=== PATIENT | male | born 1960 | race Caucasian/White ===

== ENCOUNTER 2016-05-05 18:37 | Inpatient (IN) | payer MEDICAID, OTHER ==
[~2016-05-05] VITALS: Ht 172.7 cm; Wt 81.6 kg
[2016-05-05 18:44] VITALS: BP 157/95
[2016-05-05] MEDS ORDERED: ONDANSETRON 4 MG/2 ML VIAL IVP ONE ×2 (19:05→21:45)
[2016-05-05] MEDS ORDERED: NACL 0.9% 1,000 ML IV ONE (19:05)
[2016-05-05] MEDS ORDERED: MORPHINE SULFATE 4 MG/ML SYR IVP ONE (19:05)
--- NOTE | 2016-05-05 19:16 | NUR ---
[facility] BLS TO ER BED 1
--- NOTE | 2016-05-05 19:20 | NUR ---
PT STATES HE IS IN TOO MUCH PAIN FOR URINATE AT THE MOMENT, WILL ATTEMPT IN A LITTLE BIT, ER MD DR KAUR MADE AWARE
--- NOTE | 2016-05-05 19:20 | NUR ---
55Y M BIBA C/O AB PAIN RADIATES TO BACK. [facility] PROVIDED ZOFRAN ODT 4MG WHILE ON TRANSPORT . PT DENIES N/V/D; SKIN IS PINK/WARM/DRY; AAOX4 WITH EVEN AND STEADY GAIT; LUNGS CLEAR BL; HR EVEN AND REGULAR; PT DENIES ANY FEVER, CP, SOB, OR COUGH AT THIS TIME; PATIENT STATES PAIN OF 10/10 AT THIS TIME; VSS; PATIENT POSITIONED FOR COMFORT; HOB ELEVATED; BEDRAILS UP X2; BED DOWN. ER MD MADE AWARE OF PT STATUS. HX: GALLSTONES FALL 07/2015 FROM 10 FOOT LADDER
--- NOTE | 2016-05-05 19:30 | NUR ---
Patient being evaluated by physician DR KAUR at bedside.
[2016-05-05 19:31] LABS: BASOPHILS # (AUTO) 0.1 K/uL (0.00-0.22); BASOPHILS % (AUTO) 0.9 % (0.0-2.0); EOSINOPHILS # (AUTO) 0.3 K/uL (0-0.4); EOSINOPHILS % (AUTO) 1.9 % (0.0-4.0); HEMATOCRIT 50.2 % (36-52); HEMOGLOBIN 16.4 g/dL (12.0-18.0); LYMPHOCYTES # (AUTO) 1.4 K/uL (2.0-11.5); LYMPHOCYTES % (AUTO) 8.4 % (20.5-51.1); MEAN CORPUSCULAR HEMOGLOBIN 30 pg (27-31); MEAN CORPUSCULAR HGB CONC 33 g/dL (33-37); MEAN CORPUSCULAR VOLUME 91 fL (80-94); MONOCYTES # (AUTO) 0.7 K/uL (0.8-1.0); MONOCYTES % (AUTO) 4.6 % (1.7-9.3); NEUTROPHILS # (AUTO) 13.8 K/uL (1.8-7.7); NEUTROPHILS % (AUTO) 84.2 % (42.2-75.2); PLATELET COUNT (AUTO) 305 K/uL (140-450); RED BLOOD CELL COUNT(AUTO) 5.53 MIL/uL (4.20-6.10); RED CELL DISTRIBUTION WIDTH 13.1 % (11.6-13.7); WHITE BLOOD COUNT (AUTO) 16.3 K/uL (4.8-10.8)
--- NOTE | 2016-05-05 19:35 | NUR ---
Ultrasound at bedside.
[2016-05-05 19:46] LABS: ANION GAP 6.6 (8-16); CALCIUM 8.5 mg/dL (8.5-10.1); CARBON DIOXIDE 33.3 mmol/L (21-32); CREATININE 0.9 mg/dL (0.6-1.3); POTASSIUM 3.9 mmol/L (3.5-5.1)
[2016-05-05 19:55] LABS: ALBUMIN 4.1 g/dL (3.4-5.0); TOTAL BILIRUBIN 0.5 mg/dL (0.0-1.0); TOTAL PROTEIN, SERUM 7.8 g/dL (6.4-8.2)
[2016-05-05] MEDS ORDERED: ALUMINUM HYD/MAG/SIMETHICONE 30 ML, BELLADONNA/PHENOBARBITAL 10 ML, LIDOCAINE VISCOUS 2... PO ONE ×3 (19:55)
[2016-05-05 20:23] LABS: APPEARANCE,URINE SL CLOUDY (CLEAR); BILIRUBIN,URINE NEGATIVE (NEGATIVE); BLOOD, URINE NEGATIVE (NEGATIVE); COLOR,URINE YELLOW (YELLOW); LEUKOCYTE ESTERASE ,URINE NEGATIVE (NEGATIVE); NITRITE, URINE NEGATIVE (NEGATIVE); PH,URINE 8.5 (5.0-9.0); PROTEIN,URINE 2+ (NEGATIVE); UGLUCOSE NEGATIVE (NEGATIVE); UROBILINOGEN,URINE 0.2 EU/dL (0.2 - 1)
[2016-05-05 20:39] LABS: BACTERIA,URINE FEW /HPF (None Seen); RBC,URINE NONE SEEN /HPF (0-5); SQUAMOUS EPITHELIAL CELL,UR None Seen /LPF (0-3 (FEW)); URINE AMORPHOUS PHOSPHATES 1+ /HPF (None Seen); WBC,URINE NONE SEEN /HPF (0-5)
[2016-05-05] MEDS ORDERED: metroNIDAZOLE 500 MG/NS PREMIX 100 ML IV ONE (20:55)
[2016-05-05] MEDS ORDERED: cefTRIAXone 1,000 MG VIAL ONE (21:09)
[2016-05-05] MEDS ORDERED: HYDROmorphone 1 MG/ML AMP IVP ONE (21:45)
[2016-05-05 21:47] LABS: INR 1.1 (0.8-1.2); PARTIAL THROMBOPLASTIN TIME 27.9 secs (22-35.6); PROTHROMBIN TIME 10.7 secs (10.8-13.4)
[2016-05-05 22:05] LABS: FREE T4 (FREE THYROXINE) 1.09 ng/dL (0.76-1.46); THYROID STIMULATING HORMONE 0.72 uIU/mL (0.34-3.76)
[2016-05-05] MEDS ORDERED: ONDANSETRON 4 MG/2 ML VIAL IVP PRN (22:55)
[2016-05-05] MEDS ORDERED: ACETAMINOPHEN 325 MG TAB PO PRN (22:55)
[2016-05-05 23:24] LABS: AMPHETAMINE, URINE NEG. ng/ml (NEG <=1000); BARBITURATE, URINE NEG. ng/ml (NEG <=200); BENZODIAZEPINE, URINE NEG. ng/mL (NEG <=200); CANNABINOID, URINE POS. ng/mL (NEG <=50); COCAINE, URINE NEG. ng/mL (NEG <=300); OPIATE, URINE POS. ng/mL (NEG <=2000); PHENCYCLIDINE SCREEN,URINE NEG. ng/mL (NEG <=25)
[2016-05-06] VITALS (7 sets, daily range): BP systolic 115–166; BP diastolic 67–87
--- NOTE | 2016-05-06 00:33 | NUR ---
Patient will be admitted to care of DR BRUSH . Admited to TELE 119A. Will go to room 119A. Belongings list completed. Report to DEWEY MYRICK .
[2016-05-06] MEDS: NACL 0.9% 1,000 ML IV SCH ×4 (01:27→23:12)
[2016-05-06] MEDS: HYDROcodone/APAP 5/325 MG 1 TAB TAB PO PRN ×2 (01:35→19:40)
--- NOTE | 2016-05-06 02:00 | NUR ---
[id number] Y.O.M. FROM ER.PLACED ON BED.ORIENTED TO ROOM.CALL SYSTEM EXPLAINED AND IN REACH.TELE APPLIED AND SHOWING SB.PT IS AWAKE,ALERT AND ORIENTED.RESP.UNLABORED W/O2 AT 2L/NC.IVF OF NS AT 120ML/H STARTED VIA IV LINE IN RT.AC W/#20 G W/O REDNESS OR EDEMA AT SITE AND INFUSING WELL.INITIAL ASSESSMENT DONE.CARE PLAN DISCUSSED W/PT.HE VERBALIZED UNDERSTANDING.HAD C/O ABDOMINAL PAIN PO PAIN MED GIVEN.WILL REASSESS LATER.
--- NOTE | 2016-05-06 04:25 | NUR ---
SLEEPING.VS STABLE.HR IS SB.NO S/S OF PAIN NOTED.CALL LIGHT WITHIN REACH.
[2016-05-06] MEDS: metroNIDAZOLE 500 MG/NS PREMIX 100 ML IV SCH ×3 (04:46→20:06)
--- NOTE | 2016-05-06 05:59 | NUR ---
PT REFUSED SMOKING CESSATION.ALSO FLU AND PNA VACCINE.IVF IS IN PROGRESS.NO C/O PAIN AT PRESENT TIME.STILL SLEEPING.2ND DOSE OF FLAGYL GIVEN.PT TOLERATED WELL.
[2016-05-06 06:15] LABS: BASOPHILS # (AUTO) 0.2 K/uL (0.00-0.22); BASOPHILS % (AUTO) 1.2 % (0.0-2.0); EOSINOPHILS # (AUTO) 0.1 K/uL (0-0.4); EOSINOPHILS % (AUTO) 0.7 % (0.0-4.0); HEMATOCRIT 42.4 % (36-52); HEMOGLOBIN 14.4 g/dL (12.0-18.0); LYMPHOCYTES # (AUTO) 3.8 K/uL (2.0-11.5); LYMPHOCYTES % (AUTO) 20.4 % (20.5-51.1); MEAN CORPUSCULAR HEMOGLOBIN 31 pg (27-31); MEAN CORPUSCULAR HGB CONC 34 g/dL (33-37); MEAN CORPUSCULAR VOLUME 93 fL (80-94); MONOCYTES # (AUTO) 1.4 K/uL (0.8-1.0); MONOCYTES % (AUTO) 7.4 % (1.7-9.3); NEUTROPHILS # (AUTO) 12.9 K/uL (1.8-7.7); NEUTROPHILS % (AUTO) 70.3 % (42.2-75.2); PLATELET COUNT (AUTO) 249 K/uL (140-450); RED BLOOD CELL COUNT(AUTO) 4.58 MIL/uL (4.20-6.10); RED CELL DISTRIBUTION WIDTH 12.9 % (11.6-13.7); WHITE BLOOD COUNT (AUTO) 18.4 K/uL (4.8-10.8)
[2016-05-06 06:39] LABS: ANION GAP 9.1 (8-16); CALCIUM 7.7 mg/dL (8.5-10.1); CARBON DIOXIDE 28.9 mmol/L (21-32); CREATININE 0.8 mg/dL (0.6-1.3)
[2016-05-06 06:46] LABS: CHOL/HDL RATIO 4.5 (1-4.5); MAGNESIUM 2.5 mg/dL (1.8-2.4); PHOSPHORUS 3.6 mg/dL (2.5-4.9)
--- NOTE | 2016-05-06 07:00 | NUR ---
RECEIVED REPORT FROM NIGHT NURSE. PT IS AAOX4, ON 2L VIA NC, IV TO RIGHT AC 20G INFUSING WELL. SKIN INTACT. PT STATES NO PAIN AT THIS TIME. INITIAL ASSESSMENT COMPLETED. REVIEWED PLAN OF CARE WITH PT, PT VERBALIZED UNDERSTANDING. CALL LIGHT WITHIN REACH. WILL CONTINUE TO MONITOR.
--- NOTE | 2016-05-06 09:10 | NUR ---
PATIENT HAS BEEN SCREENED AND CATEGORIZED MODERATE NUTRITION RISK. PATIENT WILL BE SEEN WITHIN 3-5 DAYS OF ADMISSION. 05/08/16-05/10/[address]
[2016-05-06] MEDS ORDERED: ALBUTEROL SULFATE/IPRATROPIU 3 ML SOL IH PRN (09:20)
[2016-05-06] MEDS: DOCUSATE SODIUM 100 MG GELCAP PO SCH (10:00)
[2016-05-06] MEDS: LACTOBACILLUS RHAMNOSUS GG 1 EACH CAP PO SCH (10:00)
--- NOTE | 2016-05-06 10:00 | NUR ---
0900 MEDICATIONS GIVEN AT THIS TIME. PT TOLERATED WELL. PT CURRENTLY SLEEPING IN BED. NO S/S OF RESPIRATORY DISTRESS NOTED. CALL LIGHT WITHIN REACH. WILL CONTINUE TO MONITOR.
[2016-05-06] MEDS: LEVOFLOXACIN 750 MG/D5W PREMIX 150 ML IV SCH (10:01)
[2016-05-06] MEDS: ALBUTEROL SULFATE/IPRATROPIU 3 ML SOL IH SCH ×4 (10:35→23:31)
--- NOTE | 2016-05-06 12:05 | NUR ---
PT CURRENTLY SLEEPING. NO S/S OF DISCOMFORT NOTED. CALL LIGHT WITHIN REACH WILL CONTINUE TO MONITOR.
--- NOTE | 2016-05-06 14:25 | NUR ---
PT CURRENTLY SLEEPING. CALL LIGHT WITHIN REACH. WILL CONTINUE TO MONITOR.
[2016-05-06] MEDS ORDERED: NICOTINE TRANSD SYS 21 MG/24 HR PATCH TD SCH (16:11)
--- NOTE | 2016-05-06 16:49 | NUR ---
NICOTINE PATCH APPLIED TO RIGHT ARM. PT CURRENTLY WATCHING TV. NO S/S OF RESPIRATORY DISTRESS OR DISCOMFORT NOTED. ALL NEEDS MET. CALL LIGHT WITHIN REACH. WILL CONTINUE TO MONITOR.
--- NOTE | 2016-05-06 19:00 | NUR ---
ENDORSED PLAN OF CARE TO NIGHT NURSE PT IN STABLE CONDITION.
--- NOTE | 2016-05-06 19:18 | NUR ---
RECEIVED REPORT FROM RAMEZ ROBLES, AT BEDSIDE. INITIAL ASSESSMENT AND BODY CHECK DONE. PATIENT AAO X 4, ABLE TO FOLLOW COMMAND AND MAKE NEEDS KNOWN AND AMBULATORY BY SELF WITH STEADY GAIT. PATIENT CURRENTLY LYING DOWN ON THE BED AND WATCHING TV. NO S/S OF DISTRESS OR SOB NOTED. STILL C/O MILD ABDOMINAL PAIN AND HUNGRY AT THIS TIME. SKIN WARM/DRY TO TOUCH WITH NORMAL COLOR AND INTACT. DISCUSSED PLAN OF CARE, PAIN MANAGEMENT AND MEDICATION REGIMEN WITH PATIENT AND PATIENT VERBALIZED UNDERSTANDING. PLACED PATIENT ON SAFETY PRECAUTIONS AND WILL CONTINUE TO MONITOR. CALL LIGHT LEFT WITHIN REACH.
[2016-05-06] MEDS: BUDESONIDE 0.5 MG/2 ML NEBU INH SCH (19:35)
[2016-05-06] MEDS: CALCIUM CARBONATE 500 MG TAB PO SCH (20:06)
--- NOTE | 2016-05-06 20:35 | NUR ---
DR. ISAAC HERE TO SEE THE PATIENT. NEW ORDERS GIVEN, NOTED AND CARRIED OUT. RESUMED DIET TO FULL LIQUID AND NPO AFTER MIDNIGHT; PATIENT AGREED TO HAVE THE SURGERY AND SIGNED THE CONSENT FORM FOR LAPAROSCOPIC POSSIBLE CHOLECYSTECTOMY BY DR. ISAAC. EXPLAINED THE PURPOSES/BENEFITS/RISKS AND PATIENT VERBALIZED UNDERSTANDING.
--- NOTE | 2016-05-06 21:29 | NUR ---
ADMINISTERED DUE AND PRN MEDICATIONS MD'S ORDERED WITH EDUCATION GIVEN. PATIENT COMPLYING WITH MEDICATIONS AND TOLERATED WELL. ALL NEEDS ARE ATTENDED. KEPT PATIENT IN COMFORTABLE POSITION/WARM AND WILL CONTINUE TO MONITOR.
--- NOTE | 2016-05-06 22:56 | NUR ---
ROUNDS MADE, SEEN PATIENT RESTED QUIETLY IN BED AND NO CHANGED IN CONDITION NOTED.
[2016-05-07] VITALS (7 sets, daily range): BP systolic 104–117; BP diastolic 67–74
--- NOTE | 2016-05-07 01:30 | NUR ---
PATIENT IS CLINICALLY STABLE WITH UNCHANGED V/S. WILL CONTINUE TO MONITOR.
[2016-05-07] MEDS: ALBUTEROL SULFATE/IPRATROPIU 3 ML SOL IH SCH ×5 (02:29→20:23)
--- NOTE | 2016-05-07 03:58 | NUR ---
PATIENT RESTED COMFORTABLY IN BED, EASILY AROUSED AND REMAINED IN STABLE CONDITION. NO ANY COMPLAINT MADE. WILL CONTINUE TO MONITOR.
[2016-05-07] MEDS: metroNIDAZOLE 500 MG/NS PREMIX 100 ML IV SCH ×3 (04:20→20:06)
[2016-05-07 06:13] LABS: BASOPHILS # (AUTO) 0.2 K/uL (0.00-0.22); EOSINOPHILS # (AUTO) 0.2 K/uL (0-0.4); EOSINOPHILS % (AUTO) 1.9 % (0.0-4.0); HEMATOCRIT 41.9 % (36-52); HEMOGLOBIN 14.3 g/dL (12.0-18.0); LYMPHOCYTES # (AUTO) 3.4 K/uL (2.0-11.5); LYMPHOCYTES % (AUTO) 32.4 % (20.5-51.1); MEAN CORPUSCULAR HEMOGLOBIN 32 pg (27-31); MEAN CORPUSCULAR HGB CONC 34 g/dL (33-37); MEAN CORPUSCULAR VOLUME 92 fL (80-94); MONOCYTES # (AUTO) 0.7 K/uL (0.8-1.0); MONOCYTES % (AUTO) 6.4 % (1.7-9.3); NEUTROPHILS # (AUTO) 6.1 K/uL (1.8-7.7); NEUTROPHILS % (AUTO) 57.3 % (42.2-75.2); PLATELET COUNT (AUTO) 226 K/uL (140-450); RED BLOOD CELL COUNT(AUTO) 4.55 MIL/uL (4.20-6.10); RED CELL DISTRIBUTION WIDTH 12.9 % (11.6-13.7); WHITE BLOOD COUNT (AUTO) 10.6 K/uL (4.8-10.8)
[2016-05-07 06:21] LABS: ANION GAP 9.7 (8-16); CARBON DIOXIDE 28.3 mmol/L (21-32); CREATININE 0.9 mg/dL (0.6-1.3)
[2016-05-07 06:32] LABS: PHOSPHORUS 3.7 mg/dL (2.5-4.9)
--- NOTE | 2016-05-07 07:00 | NUR ---
PATIENT OFF THE UNIT FOR SURGERY WITH STABLE CONDITION. ENDORSED PLAN OF CARE TO RAMEZ HUTCHISON.
[2016-05-07] MEDS: BUDESONIDE 0.5 MG/2 ML NEBU INH SCH ×2 (07:17→20:23)
[2016-05-07] MEDS ORDERED: BUPIVACAINE-MPF/EPI 0.25% 30 ML VIAL INJ ONE (07:42)
[2016-05-07] MEDS ORDERED: ROCURONIUM 50 MG/5 ML VIAL IV ONE (07:45)
[2016-05-07] MEDS ORDERED: LIDOCAINE 2% 100 MG/5 ML SYR IVP ONE (07:45)
[2016-05-07] MEDS ORDERED: PHENYLEPHRINE 10 MG/ML VIAL ONE (07:45)
[2016-05-07] MEDS ORDERED: GLYCOPYRROLATE 0.2 MG/ML VIAL ONE (07:45)
[2016-05-07] MEDS ORDERED: SUCCINYLCHOLINE CHLORIDE 200 MG/10 ML VIAL IVP ONE (07:45)
[2016-05-07] MEDS ORDERED: PROPOFOL 200 MG/20 ML VIAL IV ONE (07:45)
[2016-05-07] MEDS ORDERED: KETOROLAC 60 MG/2 ML VIAL IM ONE (07:45)
[2016-05-07] MEDS ORDERED: DESFLURANE 240 ML BTL INH ONE (07:45)
[2016-05-07] MEDS ORDERED: ONDANSETRON 4 MG/2 ML VIAL ONE (07:45)
[2016-05-07] MEDS ORDERED: fentaNYL 0.05 MG/ML VIAL ONE (07:58)
[2016-05-07] MEDS ORDERED: MEPERIDINE 50 MG/ML SYR ONE (07:58)
[2016-05-07] MEDS ORDERED: MIDAZOLAM 2 MG/2 ML VIAL ONE (07:58)
[2016-05-07] MEDS: LACTOBACILLUS RHAMNOSUS GG 1 EACH CAP PO SCH (09:00)
[2016-05-07] MEDS ORDERED: LACTOBACILLUS RHAMNOSUS GG 1 EACH CAP PO SCH (09:00)
[2016-05-07] MEDS: DOCUSATE SODIUM 100 MG GELCAP PO SCH (09:00)
[2016-05-07] MEDS: CALCIUM CARBONATE 500 MG TAB PO SCH ×2 (09:00→20:05)
[2016-05-07] MEDS ORDERED: MIDAZOLAM 2 MG/2 ML VIAL IVP ONE (09:20)
[2016-05-07] MEDS ORDERED: MEPERIDINE 25 MG/ML SYR IVP PRN ×2 (09:20)
[2016-05-07] MEDS ORDERED: METOCLOPRAMIDE 10 MG/2 ML INJ VIAL IVP PRN (09:20)
--- NOTE | 2016-05-07 10:20 | NUR ---
PT BACK FROM OR WITH CLINICAL APPLICATIONS MANAGER AT BEDSIDE. PT IS AAOX4, BUT DROWSY D/T ANESTHESIA MEDICATIONS. JUDSON, PT'S AUNT AT BEDSIDE. PT HAS 22G IV ON RIGHT AC, INTACT AND PATENT. PT HAS 4 INCISIONS ON ABD COVERED WITH BAND-AID. MINIMAL BLEEDING NOTED; OTHERWISE, SKIN IS WARM, DRY, AND INTACT. PT DENIES PAIN AT THIS TIME. NICOTINE PATCH NOTED ON LEFT ARM. PT ON 2L O2 NASAL CANNULA WITH NO S/S DISTRESS OR SOB AT THIS TIME. SAFETY MEASURES CHECKED, CALL LIGHT LEFT AT BEDSIDE. WILL CONTINUE TO MONITOR.
[2016-05-07] MEDS: NICOTINE TRANSD SYS 21 MG/24 HR PATCH TD SCH (10:35)
[2016-05-07] MEDS: LEVOFLOXACIN 750 MG/D5W PREMIX 150 ML IV SCH (10:35)
[2016-05-07] MEDS: NACL 0.9% 1,000 ML IV SCH ×2 (10:36→16:35)
--- NOTE | 2016-05-07 10:54 | NUR ---
REMOVED NICOTINE PATCH ON RIGHT ARM AND NEW ON PLACED ON LEFT ARM.
--- NOTE | 2016-05-07 10:54 | NUR ---
NICOTINE PATCH ON RIGHT ARM, NOT LEFT. Addendum: 05/07/16 at 1055 by Dilcia Medina RN BEFORE NEW ONE WAS PLACED.
--- NOTE | 2016-05-07 12:00 | NUR ---
ASSISTED PT WITH LUNCH TRAY. PER PT, HE DOES NOT HAVE N/V AT THIS TIME.
--- NOTE | 2016-05-07 15:18 | NUR ---
INCENTIVE SPIROMETER GIVEN TO PATIENT. IS EDUCATION GIVEN. PT VERBALIZED UNDERSTANDING. PT ASKING FOR PAIN MEDICATIONS. DR. TRINIDAD INFORMED.
[2016-05-07] MEDS ORDERED: MORPHINE SULFATE 2 MG/ML SYR IVP PRN (15:20)
--- NOTE | 2016-05-07 16:30 | NUR ---
DR FERNANDES AND AMOS AT BEDSIDE EXPLAINING PROCEDURE PT HAD TODAY. PT VERBALIZED UNDERSTANDING THAT HE HAD HIS GALLBLADDER TAKEN OUT. DR TRINIDAD ALSO EXPLAINED THAT DR ISAAC HAD SEEN AN INCARCERATED BOWEL, SO HERNIA REPAIR WAS DONE TOO. PT VERBALIZED UNDERSTANDING.
--- NOTE | 2016-05-07 17:17 | NUR ---
PT AMBULATING AROUND UNIT, TOLERATING WELL. WILL CONTINUE TO MONITOR.
--- NOTE | 2016-05-07 19:25 | NUR ---
REPORT GIVEN TO PIYUSH MYRICK.
--- NOTE | 2016-05-07 19:26 | NUR ---
RECEIVED PT IN STABLE CONDITION FROM RAMEZ HUTCHISON. NO SOB, NO SIGNS OF DISTRESS. IV TO RT AC 20G PATENT, ASYMPTOMATIC, INTACT, SALINE LOCKED. PT IS AOX4, AMBULATORY. PT C/O ABD PAIN, WILL MEDICATE PER MD ORDER. PT S/P LAP BALJEET WITH HERNIA REPAIR, 4 INCISIONS TO ABD WITH DRESSINGS DRY AND INTACT, SKIN OTHERWISE INTACT. FAMILY AT BEDSIDE. PLAN OF CARE DISCUSSED WITH PT. SAFETY MEASURES IN PLACE. CALL LIGHT WITHIN REACH. WILL CONTINUE TO MONITOR.
[2016-05-07] MEDS: HYDROcodone/APAP 5/325 MG 1 TAB TAB PO PRN (20:05)
--- NOTE | 2016-05-07 20:06 | NUR ---
PT TOLERATED DUE MEDS WELL, MEDICATED PT FOR PAIN PER MD ORDER. NO SOB, NO SIGNS OF DISTRESS. IV SITE ASYMPTOMATIC, INTACT, PATENT, IVF RUNNING. PLAN OF CARE DISCUSSED WITH PT. SAFETY MEASURES IN PLACE. CALL LIGHT WITHIN REACH. WILL CONTINUE TO MONITOR.
--- NOTE | 2016-05-07 22:30 | NUR ---
PT RESTING IN BED. NO SOB, NO SIGNS OF DISTRESS. IV SITE ASYMPTOMATIC, INTACT, PATENT, IVF RUNNING. PT DENIES PAIN AT THIS TIME. PLAN OF CARE DISCUSSED WITH PT. SAFETY MEASURES IN PLACE. CALL LIGHT WITHIN REACH. WILL CONTINUE TO MONITOR.
--- NOTE | 2016-05-07 23:40 | NUR ---
VS STABLE ON ROOM AIR, O2 SAT 91 ON ROOM AIR, PLACED PT ON 2L O2 NC. NO SOB, NO SIGNS OF DISTRESS. IV SITE ASYMPTOMATIC, INTACT, PATENT, IVF RUNNING. PT C/O PAIN, WILL MEDICATE PER MD ORDER. PLAN OF CARE DISCUSSED WITH PT. SAFETY MEASURES IN PLACE. CALL LIGHT WITHIN REACH. WILL CONTINUE TO MONITOR.
[2016-05-08] VITALS: BP 115/61
[2016-05-08] MEDS: ALBUTEROL SULFATE/IPRATROPIU 3 ML SOL IH SCH ×4 (00:03→11:07)
[2016-05-08] MEDS: HYDROcodone/APAP 5/325 MG 1 TAB TAB PO PRN ×2 (00:08→08:34)
--- NOTE | 2016-05-08 02:29 | NUR ---
PT ASLEEP IN BED. NO SOB, NO SIGNS OF DISTRESS. IV SITE ASYMPTOMATIC, INTACT, PATENT, IVF RUNNING. SAFETY MEASURES IN PLACE. CALL LIGHT WITHIN REACH. WILL CONTINUE TO MONITOR.
--- NOTE | 2016-05-08 03:20 | NUR ---
PT REFUSED HHNTX, WANTS TO SLEEP. JENNIFFER MYRICK AWARE.
[2016-05-08] MEDS: NACL 0.9% 1,000 ML IV SCH ×2 (04:25→09:15)
--- NOTE | 2016-05-08 04:30 | NUR ---
CHANGED IV BAG AND GAVE IVPB PER MD ORDER. PT AWAKE, NO SOB, NO SIGNS OF DISTRESS. IV SITE ASYMPTOMATIC, INTACT, PATENT, IVF RUNNING. PT DENIES PAIN AT THIS TIME. PLAN OF CARE DISCUSSED WITH PT. SAFETY MEASURES IN PLACE. CALL LIGHT WITHIN REACH. WILL CONTINUE TO MONITOR.
[2016-05-08] MEDS: metroNIDAZOLE 500 MG/NS PREMIX 100 ML IV SCH (05:03)
[2016-05-08 06:06] LABS: BASOPHILS # (AUTO) 0.2 K/uL (0.00-0.22); BASOPHILS % (AUTO) 1.9 % (0.0-2.0); EOSINOPHILS # (AUTO) 0.2 K/uL (0-0.4); EOSINOPHILS % (AUTO) 2.3 % (0.0-4.0); HEMATOCRIT 39.3 % (36-52); HEMOGLOBIN 13.3 g/dL (12.0-18.0); LYMPHOCYTES # (AUTO) 3.1 K/uL (2.0-11.5); LYMPHOCYTES % (AUTO) 34.2 % (20.5-51.1); MEAN CORPUSCULAR HEMOGLOBIN 31 pg (27-31); MEAN CORPUSCULAR HGB CONC 34 g/dL (33-37); MEAN CORPUSCULAR VOLUME 92 fL (80-94); MONOCYTES # (AUTO) 0.8 K/uL (0.8-1.0); MONOCYTES % (AUTO) 8.8 % (1.7-9.3); NEUTROPHILS # (AUTO) 4.9 K/uL (1.8-7.7); NEUTROPHILS % (AUTO) 52.8 % (42.2-75.2); PLATELET COUNT (AUTO) 218 K/uL (140-450); RED BLOOD CELL COUNT(AUTO) 4.28 MIL/uL (4.20-6.10); RED CELL DISTRIBUTION WIDTH 12.8 % (11.6-13.7); WHITE BLOOD COUNT (AUTO) 9.2 K/uL (4.8-10.8)
[2016-05-08 06:28] LABS: PHOSPHORUS 4.3 mg/dL (2.5-4.9)
[2016-05-08 06:30] LABS: ALBUMIN 2.8 g/dL (3.4-5.0); ANION GAP 8.6 (8-16); CALCIUM 8.1 mg/dL (8.5-10.1); CARBON DIOXIDE 30.4 mmol/L (21-32); CREATININE 0.9 mg/dL (0.6-1.3); TOTAL BILIRUBIN 0.4 mg/dL (0.0-1.0); TOTAL PROTEIN, SERUM 5.6 g/dL (6.4-8.2)
--- NOTE | 2016-05-08 07:26 | NUR ---
ENDORSED PT IN STABLE CONDITION TO RAMEZ MCCARTHY. ALL NEEDS HAVE BEEN MET AT THIS TIME.
--- NOTE | 2016-05-08 07:27 | NUR ---
RECEIVED SBAR REPORT FROM RAMEZ PRAKASH AT PT BEDSIDE. PT RESTING IN BED. C/O SLIGHT ABD PAIN, WILL MEDICATE ORDERED. AAOX4. IV SITE PATENT AND INTACT. CALL LIGHT WITHIN REACH. INCISION SITES DRY AND INTACT.
[2016-05-08] MEDS: BUDESONIDE 0.5 MG/2 ML NEBU INH SCH (07:39)
[2016-05-08 08:00] VITALS: BP 119/73
[2016-05-08] MEDS: CALCIUM CARBONATE 500 MG TAB PO SCH (08:34)
[2016-05-08] MEDS: DOCUSATE SODIUM 100 MG GELCAP PO SCH (08:34)
[2016-05-08] MEDS: LACTOBACILLUS RHAMNOSUS GG 1 EACH CAP PO SCH (08:35)
[2016-05-08] MEDS: LEVOFLOXACIN 750 MG/D5W PREMIX 150 ML IV SCH (08:35)
[2016-05-08] MEDS: NICOTINE TRANSD SYS 21 MG/24 HR PATCH TD SCH (08:35)
[2016-05-08] MEDS ORDERED: flagyl PO (09:17)
[2016-05-08] MEDS ORDERED: lactinex PO (09:17)
[2016-05-08] MEDS ORDERED: qvar INH (09:18)
[2016-05-08] MEDS ORDERED: ALBU0.0912 IH (09:19)
[2016-05-08] MEDS ORDERED: levaquin PO (09:20)
[2016-05-08] MEDS ORDERED: ACET-9525 PO (09:21)
[2016-05-08] MEDS ORDERED: norco (09:21)
[2016-05-08] MEDS ORDERED: DOCU-67 PO (09:22)
--- NOTE | 2016-05-08 11:04 | NUR ---
PATIENT SEEN BY DR. STEELE. PATIENT HAD ALL QUESTIONS ANSWERED. PATIENT TO BE D/C HOME WITH F/U APPOINTMENTS. MEDICATION TEACHING GIVEN, VERBALIZED UNDERSTANDING. WOUND DRESSING CHANGED, DRY AND INTACT WITH CLIVE. PATIENT DENIES DISCOMFORT AT THIS TIME. AAOX4. AMBULATORY.
[2016-05-08] MEDS ORDERED: INFLUENZA VIRUS VACCINE QUAD 0.5 ML SYR IMVAC SCH (11:15)
[2016-05-08] MEDS ORDERED: PNEUMOCOCCAL VACCINE 23 MCG/0.5 ML VIAL IMVAC SCH (11:15)
--- NOTE | 2016-05-08 11:50 | NUR ---
PATIENT D/C'ED TO FRONT LOBBY. TO TAKE PATIENT HOME. IV REMOVED, CANULA INTACT. AMBULATORY. NO S/S OF DISTRESS.
== END 2016-05-08 11:40 | disposition home or self-care (01) | DRG 263 ==
LOC: MED 18:37 → MTU 21:13
PROVIDERS: ADMIT Student in an Organized Health Care Education/Training Program; ATTEND Student in an Organized Health Care Education/Training Program
PROC: 0WQF0ZZ Repair Abdominal Wall, Open Approach (ICD-10-PCS; 2016-05-07)
PROC: 0FT44ZZ Resection of Gallbladder, Percutaneous Endoscopic Approach (ICD-10-PCS; principal; 2016-05-07 07:30)
DX: K80.00 Calculus of gallbladder with acute cholecystitis without obstruction (principal); N17.0 Acute kidney failure with tubular necrosis; E43 Unspecified severe protein-calorie malnutrition; E83.51 Hypocalcemia; E83.41 Hypermagnesemia; J44.9 Chronic obstructive pulmonary disease, unspecified; J45.909 Unspecified asthma, uncomplicated; K42.9 Umbilical hernia without obstruction or gangrene; H53.50 Unspecified color vision deficiencies; F12.90 Cannabis use, unspecified, uncomplicated; F19.10 Other psychoactive substance abuse, uncomplicated; F17.210 Nicotine dependence, cigarettes, uncomplicated; Z79.2 Long term (current) use of antibiotics; Z79.899 Other long term (current) drug therapy; Z86.61 Personal history of infections of the central nervous system; Z87.898 Personal history of other specified conditions
CPT/HCPCS: 36415; 71010; 76705; 80048; 80053; 80305; 81001; 83036; 83690; 83735; 83880; 84100; 84439; 84443; 85025; 85610; 85730; 86886; 86900; 86901; 87081; 90658; 90732; 93005; 94640; 96361; 96365; 96367; 96375; 96376; 99285; J0330; J0696; J1170; J1885; J1956; J2001; J2175; J2250; J2270; J2370; J2405; J2704; J3010; J3490; J7030; J7060; J7620; J7626; Q0092